=== PATIENT | male | born 1945 | race Caucasian/White ===

== ENCOUNTER 2021-11-17 22:44 | Inpatient (IN) ==
[2021-11-18 02:19] LABS: Activated Partial Thrombo Time 29.1 seconds (26.0-38.0)
[2021-11-18 02:34] LABS: Hematocrit 28 % (42-52); Hemoglobin 8.1 g/dL (14.0-18.0); Mean Corpuscular HGB Conc 29 g/dL (31-36); Mean Corpuscular Hemoglobin 19 pg (27-31); Mean Corpuscular Volume 66 fL (80-94); Mean Platelet Volume 8.4 fL (7.4-10.4); Platelet Count 201 10^3/uL (150-450); Red Blood Count 4.25 10^6 /uL (4.18-5.48); Red Cell Distribution Width 24 % (10-15); White Blood Count 17.9 10^3/uL (3.5-10.8)
[2021-11-18] MEDS ORDERED: Pantoprazole 80 mg in NS BAG 80 MG/250 ML BAG IV SCH (03:00)
[2021-11-18 03:06] LABS: Albumin 2.9 g/dL (3.2-5.2); Calcium 7.9 mg/dL (8.6-10.3); Magnesium 1.9 mg/dL (1.9-2.7); Total Bilirubin 1.8 mg/dL (0.2-1.0)
[2021-11-18 03:12] LABS: Albumin/Globulin Ratio 1.1 (1-3); C Reactive Protein 204.54 mg/L (<8.01); Globulin 2.6 g/dL (2-4); Total Protein 5.5 g/dL (6.4-8.9); eGFR CKD-EPI 102.2 (>60)
[2021-11-18] MEDS ORDERED: Lactated Ringers 1000 ml BAG 1,000 ML IV SCH ×2 (03:18→04:20)
[2021-11-18] MEDS ORDERED: Vancomycin 1,000 MG in NS 0.9% 250 ml 250 ML IVPB ONE (03:19)
[2021-11-18] MEDS: Cefepime 1 GM in Dextrose 1 GM/50 ML BAG IV SCH ×2 (04:00→16:38)
[2021-11-18] MEDS ORDERED: Vancomycin per Pharmacy 1 EA NOTE FOLLOW UP SCH (04:00)
[2021-11-18 04:07] LABS: TSH Ultra Thyroid Stim Horm 3.22 mcIU/mL (0.34-5.60)
[2021-11-18] MEDS: Pantoprazole VIAL 40 MG VIAL IV SCH ×2 (04:09→16:35)
[2021-11-18 04:13] LABS: Ferritin 35.8 ng/mL (24-336)
[2021-11-18] MEDS: metroNIDAZOLE IV 500 MG/100ML 500 MG/100 ML BAG IVPB SCH ×2 (05:04→12:16)
[2021-11-18 05:41] LABS: Urine Appearance Clear; Urine Bilirubin Negative (Negative); Urine Blood 2+ (Negative); Urine Color Yellow; Urine Glucose 1+(50 mg/dL) (Negative); Urine Ketones 1+ (Negative); Urine Nitrite Negative (Negative); Urine Protein 1+(30 mg/dL) (Negative); Urine Specific Gravity 1.025 (1.002-1.030); Urine Urobilinogen Negative (Negative)
[2021-11-18 06:30] LABS: Urine Bacteria Absent (Absent); Urine Red Blood Cell Trace(0-2/hpf) (Absent); Urine White Blood Cell Trace(0-5/hpf) (Absent)
[2021-11-18 08:40] LABS: Anisocytosis 2+; Hypochromasia 2+; Microcytosis 3+; Polychromasia 1+
[2021-11-18 08:41] LABS: ABS Lymphocytes 0.3 10^3/ul (1.0-4.8); ABS Monocytes 1.6 10^3/ul (0-0.8); Lymphocyte % 1.9 %
[2021-11-18] MEDS ORDERED: Vancomycin 1000 MG in NS 0.9% 250 ML IVPB SCH (12:00)
[2021-11-18] MEDS ORDERED: Piperacillin/Tazobac ADVAN 3.375 GM in NS 0.9% 100 ml BAG 100 ML IV ONE (17:13)
[2021-11-18] MEDS ORDERED: Zosyn per Pharmacy NOTE FOLLOW UP SCH (18:00)
[2021-11-18] MEDS ORDERED: Insulin GLARGINE 100 un/ml 10 ml VIAL SUBCUT SCH (21:00)
[2021-11-18] MEDS: ZOSYN 3.375 GM Q8H per EXTENDED INFUSION IV SCH (21:56)
[2021-11-19 05:24] LABS: Hematocrit 30 % (42-52); Hemoglobin 8.6 g/dL (14.0-18.0); Mean Corpuscular HGB Conc 29 g/dL (31-36); Mean Corpuscular Hemoglobin 19 pg (27-31); Mean Corpuscular Volume 67 fL (80-94); Mean Platelet Volume 8.6 fL (7.4-10.4); Platelet Count 221 10^3/uL (150-450); Red Cell Distribution Width 24 % (10-15); White Blood Count 16.9 10^3/uL (3.5-10.8)
[2021-11-19] MEDS: ZOSYN 3.375 GM Q8H per EXTENDED INFUSION IV SCH ×3 (05:24→22:05)
[2021-11-19] MEDS: Pantoprazole VIAL 40 MG VIAL IV SCH (05:24)
[2021-11-19 05:35] LABS: Anion Gap 7 mmol/L (2-11); Blood Urea Nitrogen 29 mg/dL (6-24); CO2 Carbon Dioxide 22 mmol/L (22-32); Calcium 7.9 mg/dL (8.6-10.3); Chloride 110 mmol/L (101-111); Cholesterol 114 mg/dL; Glucose 364 mg/dL (70-100); HDL Cholesterol 41.2 mg/dL; LDL Cholesterol 59 mg/dL; Magnesium 2.1 mg/dL (1.9-2.7); Potassium 4.2 mmol/L (3.5-5.0); Sodium 139 mmol/L (135-145); Triglycerides 68 mg/dL; eGFR CKD-EPI 93.7 (>60)
[2021-11-19 08:48] LABS: Folate > 20.00 ng/mL (5.90-24.80)
[2021-11-19 08:49] LABS: Vitamin B12 989 pg/mL (180-914)
[2021-11-19 10:21] LABS: Creatine Kinase 835 U/L (10-223)
[2021-11-19] MEDS ORDERED: NS 0.9% 1000 ml BAG 1,000 ML IV SCH (11:15)
[2021-11-19] MEDS ORDERED: Vancomycin Trough Check NOTE FOLLOW UP ONE (11:30)
[2021-11-19] MEDS ORDERED: Piperacillin/Tazobac 3.375 GM BAG ONE (14:34)
[2021-11-19] MEDS ORDERED: Vancomycin per Pharmacy 1 EA NOTE FOLLOW UP SCH (16:00)
[2021-11-19] MEDS ORDERED: Bupivacaine 0.5% 50 ML MDV VIAL ONE (16:01)
[2021-11-19] MEDS ORDERED: Lidocaine 2% PF 10 ML AMP ONE (16:02)
[2021-11-19] MEDS ORDERED: Vancomycin 1,000 MG in NS 0.9% 250 ml 250 ML IVPB ONE (16:30)
[2021-11-19] MEDS ORDERED: fentaNYL 250 mcg/5 ml 50 MCG/ML 5 ml VIAL (250 MCG) ONE (16:38)
[2021-11-19] MEDS ORDERED: Rocuronium 50 mg VIAL 10 mg/ml 5 ml VIAL (50 mg) ONE (16:38)
[2021-11-19] MEDS ORDERED: Phenylephrine IV 10 MG/ML 1 ml VIAL ONE (16:39)
[2021-11-19] MEDS ORDERED: Propofol 10 MG/ML 20 ML BTL ONE (16:39)
[2021-11-19] MEDS ORDERED: Ondansetron 4 mg VIAL 2 MG/ML 2 ml VIAL ONE (16:39)
[2021-11-19] MEDS ORDERED: Sugammadex 500 MG/5 ML 5 ml VIAL IV PUSH ONE (17:39)
[2021-11-19] MEDS ORDERED: fentaNYL 100 mcg/2 ml 50 MCG/ML VIAL IV PRN (18:07)
[2021-11-19] MEDS ORDERED: Ondansetron 4 mg VIAL 2 MG/ML 2 ml VIAL IV PRN (18:07)
[2021-11-19] MEDS ORDERED: Naloxone 0.4 mg VIAL 0.4 mg/ml 1 ml VIAL IV PRN (18:07)
[2021-11-19] MEDS ORDERED: Acetaminophen IV 1 GM/100ML 100 ML IV PRN (18:07)
[2021-11-19] MEDS: Insulin GLARGINE 100 un/ml 10 ml VIAL SUBCUT SCH (22:05)
[2021-11-20] MEDS: ZOSYN 3.375 GM Q8H per EXTENDED INFUSION IV SCH ×3 (05:14→21:47)
[2021-11-20] MEDS: HYDROmorphone 0.5 MG/0.5 ML SYRINGE IV SLOW PU PRN (05:14)
[2021-11-20 06:40] LABS: Hematocrit 26 % (42-52); Hemoglobin 7.4 g/dL (14.0-18.0); Mean Corpuscular HGB Conc 29 g/dL (31-36); Mean Corpuscular Hemoglobin 19 pg (27-31); Mean Corpuscular Volume 66 fL (80-94); Mean Platelet Volume 7.5 fL (7.4-10.4); Platelet Count 220 10^3/uL (150-450); Red Blood Count 3.94 10^6 /uL (4.18-5.48); Red Cell Distribution Width 24 % (10-15); White Blood Count 13.7 10^3/uL (3.5-10.8)
[2021-11-20 06:53] LABS: C Reactive Protein 154.59 mg/L (<8.01); Calcium 7.6 mg/dL (8.6-10.3); Potassium 3.9 mmol/L (3.5-5.0); eGFR CKD-EPI 103.9 (>60)
[2021-11-20 07:42] LABS: ABS Eosinophils 0.2 10^3/ul (0-0.6); ABS Lymphocytes 0.4 10^3/ul (1.0-4.8); ABS Monocytes 2.1 10^3/ul (0-0.8); ABS Neutrophils 11.1 10^3/ul (1.5-7.7); Eosinophil % 1.4 %; Lymphocyte % 2.6 %
[2021-11-20] MEDS: Vancomycin 1000 MG in NS 0.9% 250 ML IVPB SCH ×2 (08:38→20:28)
[2021-11-20] MEDS: Senna TAB 8.6 mg TAB PO SCH (21:48)
[2021-11-20] MEDS: Insulin GLARGINE 100 un/ml 10 ml VIAL SUBCUT SCH (21:49)
[2021-11-21] MEDS: ZOSYN 3.375 GM Q8H per EXTENDED INFUSION IV SCH ×3 (05:08→21:11)
[2021-11-21 05:47] LABS: Hematocrit 28 % (42-52); Hemoglobin 8.1 g/dL (14.0-18.0); Mean Corpuscular HGB Conc 29 g/dL (31-36); Mean Corpuscular Hemoglobin 19 pg (27-31); Mean Corpuscular Volume 66 fL (80-94); Mean Platelet Volume 8.3 fL (7.4-10.4); Platelet Count 222 10^3/uL (150-450); Red Blood Count 4.28 10^6 /uL (4.18-5.48); Red Cell Distribution Width 24 % (10-15); White Blood Count 9.3 10^3/uL (3.5-10.8)
[2021-11-21 05:55] LABS: C Reactive Protein 119.58 mg/L (<8.01); Calcium 7.7 mg/dL (8.6-10.3); Magnesium 1.9 mg/dL (1.9-2.7); Potassium 3.8 mmol/L (3.5-5.0); Vancomycin Trough 9.5 mcg/mL; eGFR CKD-EPI 106.4 (>60)
[2021-11-21] MEDS ORDERED: Vancomycin Trough Check NOTE FOLLOW UP ONE (06:00)
[2021-11-21 07:16] LABS: ABS Eosinophils 0.2 10^3/ul (0-0.6); ABS Lymphocytes 1.6 10^3/ul (1.0-4.8); ABS Monocytes 0.7 10^3/ul (0-0.8); ABS Neutrophils 6.7 10^3/ul (1.5-7.7); Eosinophil % 2.6 %; Lymphocyte % 17.3 %
[2021-11-21] MEDS ORDERED: Magnesium Sulfate 2 gm BAG 2 GM/50 ML BAG IVPB ONE (07:20)
[2021-11-21] MEDS ORDERED: Insulin GLARGINE 100 un/ml 10 ml VIAL SUBCUT SCH ×2 (09:00)
[2021-11-21] MEDS: Polyethylene Glycol 3350 17 GM PACKET PO SCH (09:35)
[2021-11-21] MEDS: Vancomycin 1000 MG in NS 0.9% 250 ML IVPB SCH (09:35)
[2021-11-21] MEDS: Iron Sucrose 200 MG in NS 0.9% 100 ml BAG 100 ML IVPB SCH (16:14)
[2021-11-21] MEDS: Vancomycin 750 MG in NS 0.9% 250 ML IVPB SCH (17:42)
[2021-11-21] MEDS: Senna TAB 8.6 mg TAB PO SCH (21:11)
[2021-11-22] MEDS: Vancomycin 750 MG in NS 0.9% 250 ML IVPB SCH ×3 (01:37→18:00)
[2021-11-22] MEDS: ZOSYN 3.375 GM Q8H per EXTENDED INFUSION IV SCH ×3 (05:28→21:29)
[2021-11-22 06:50] LABS: Hematocrit 27 % (42-52); Hemoglobin 8.2 g/dL (14.0-18.0); Mean Corpuscular HGB Conc 30 g/dL (31-36); Mean Corpuscular Hemoglobin 20 pg (27-31); Mean Corpuscular Volume 66 fL (80-94); Mean Platelet Volume 8.6 fL (7.4-10.4); Platelet Count 251 10^3/uL (150-450); Red Blood Count 4.14 10^6 /uL (4.18-5.48); Red Cell Distribution Width 25 % (10-15); White Blood Count 9.8 10^3/uL (3.5-10.8)
[2021-11-22 07:12] LABS: C Reactive Protein 99.56 mg/L (<8.01); Potassium 3.9 mmol/L (3.5-5.0); eGFR CKD-EPI 101.7 (>60)
[2021-11-22 07:53] LABS: ABS Eosinophils 0.2 10^3/ul (0-0.6); ABS Lymphocytes 1.8 10^3/ul (1.0-4.8); ABS Monocytes 0.9 10^3/ul (0-0.8); ABS Neutrophils 6.9 10^3/ul (1.5-7.7); Eosinophil % 2.4 %; Lymphocyte % 18.1 %
[2021-11-22] MEDS ORDERED: Insulin GLARGINE 100 un/ml 10 ml VIAL SUBCUT SCH ×2 (09:00→18:00)
[2021-11-22] MEDS: Polyethylene Glycol 3350 17 GM PACKET PO SCH (09:08)
[2021-11-22] MEDS: Dextrose 50% Syringe 50 ml 25 GM/50 ML SYRINGE IV PUSH PRN (09:22)
[2021-11-22] MEDS: Iron Sucrose 200 MG in NS 0.9% 100 ml BAG 100 ML IVPB SCH (09:38)
[2021-11-22 09:55] LABS: Calcium 7.5 mg/dL (8.6-10.3)
[2021-11-22 21:19] LABS: Glucose Confirmatory 414 mg/dL (70-100)
[2021-11-22] MEDS: Senna TAB 8.6 mg TAB PO SCH (21:29)
[2021-11-22] MEDS: Insulin GLARGINE 100 un/ml 10 ml VIAL SUBCUT SCH (21:29)
[2021-11-23] MEDS: Vancomycin 750 MG in NS 0.9% 250 ML IVPB SCH ×2 (01:56→11:17)
[2021-11-23 04:11] LABS: ABS Basophils 0.1 10^3/ul (0-0.2); ABS Eosinophils 0.2 10^3/ul (0-0.6); ABS Lymphocytes 0.6 10^3/ul (1.0-4.8); ABS Monocytes 0.7 10^3/ul (0-0.8); ABS Neutrophils 7.6 10^3/ul (1.5-7.7); Eosinophil % 2.7 %; Hematocrit 29 % (42-52); Hemoglobin 8.4 g/dL (14.0-18.0); Lymphocyte % 6.1 %; Mean Corpuscular HGB Conc 29 g/dL (31-36); Mean Corpuscular Hemoglobin 20 pg (27-31); Mean Corpuscular Volume 67 fL (80-94); Mean Platelet Volume 8.6 fL (7.4-10.4); Nucleated Red Blood Cells % 0.1; Platelet Count 283 10^3/uL (150-450); Red Blood Count 4.32 10^6 /uL (4.18-5.48); Red Cell Distribution Width 25 % (10-15); White Blood Count 9.2 10^3/uL (3.5-10.8)
[2021-11-23 04:21] LABS: C Reactive Protein 113.13 mg/L (<8.01); Calcium 7.7 mg/dL (8.6-10.3); Potassium 4.1 mmol/L (3.5-5.0); eGFR CKD-EPI 103.3 (>60)
[2021-11-23] MEDS: ZOSYN 3.375 GM Q8H per EXTENDED INFUSION IV SCH ×3 (05:44→22:53)
[2021-11-23] MEDS: Polyethylene Glycol 3350 17 GM PACKET PO SCH (08:16)
[2021-11-23] MEDS: Iron Sucrose 200 MG in NS 0.9% 100 ml BAG 100 ML IVPB SCH (08:16)
[2021-11-23] MEDS ORDERED: Insulin GLARGINE 100 un/ml 10 ml VIAL SUBCUT SCH ×2 (09:00)
[2021-11-23] MEDS ORDERED: Vancomycin Trough Check NOTE FOLLOW UP ONE (09:30)
[2021-11-23] MEDS: HYDROmorphone 0.5 MG/0.5 ML SYRINGE IV SLOW PU PRN ×3 (09:35→20:25)
[2021-11-23] MEDS ORDERED: Vancomycin 1,250 MG in NS 0.9% 250 ml 250 ML IVPB SCH (11:30)
[2021-11-23] MEDS: Senna TAB 8.6 mg TAB PO SCH (20:05)
[2021-11-23] MEDS: Insulin GLARGINE 100 un/ml 10 ml VIAL SUBCUT SCH (20:06)
[2021-11-24] MEDS: ZOSYN 3.375 GM Q8H per EXTENDED INFUSION IV SCH ×3 (05:35→23:23)
[2021-11-24] MEDS: Polyethylene Glycol 3350 17 GM PACKET PO SCH (09:21)
[2021-11-24] MEDS: Insulin GLARGINE 100 un/ml 10 ml VIAL SUBCUT SCH (09:30)
[2021-11-24] MEDS ORDERED: Magnesium CITRATE LIQ 300 ML BTL PO ONE (11:14)
[2021-11-24] MEDS ORDERED: LORazepam 2 mg VIAL 1 ml IV PUSH PRN (11:49)
[2021-11-24] MEDS ORDERED: Lorazepam PYXIS KEY PRN (11:50)
[2021-11-24] MEDS: Iron Sucrose 200 MG in NS 0.9% 100 ml BAG 100 ML IVPB SCH (12:53)
[2021-11-24] MEDS: Dextrose 50% Syringe 50 ml 25 GM/50 ML SYRINGE IV PUSH PRN (17:12)
[2021-11-24] MEDS: Senna TAB 8.6 mg TAB PO SCH (22:11)
[2021-11-24] MEDS: HYDROmorphone 0.5 MG/0.5 ML SYRINGE IV SLOW PU PRN (23:17)
[2021-11-25] MEDS: ZOSYN 3.375 GM Q8H per EXTENDED INFUSION IV SCH ×3 (05:08→21:50)
[2021-11-25 07:10] LABS: Calcium 7.5 mg/dL (8.6-10.3); Magnesium 1.9 mg/dL (1.9-2.7); Potassium 3.5 mmol/L (3.5-5.0); eGFR CKD-EPI 107.7 (>60)
[2021-11-25] MEDS ORDERED: Magnesium Sulfate 2 gm BAG 2 GM/50 ML BAG IVPB ONE (07:14)
[2021-11-25 07:16] LABS: Hematocrit 25 % (42-52); Hemoglobin 7.7 g/dL (14.0-18.0); Mean Corpuscular HGB Conc 30 g/dL (31-36); Mean Corpuscular Hemoglobin 20 pg (27-31); Mean Corpuscular Volume 67 fL (80-94); Mean Platelet Volume 8.6 fL (7.4-10.4); Platelet Count 272 10^3/uL (150-450); Red Blood Count 3.78 10^6 /uL (4.18-5.48); Red Cell Distribution Width 26 % (10-15); White Blood Count 7.4 10^3/uL (3.5-10.8)
[2021-11-25] MEDS: Insulin GLARGINE 100 un/ml 10 ml VIAL SUBCUT SCH (08:48)
[2021-11-25] MEDS: Iron Sucrose 200 MG in NS 0.9% 100 ml BAG 100 ML IVPB SCH (08:49)
[2021-11-25] MEDS: Polyethylene Glycol 3350 17 GM PACKET PO SCH ×2 (08:49→08:53)
[2021-11-25 09:11] LABS: C Reactive Protein 90.48 mg/L (<8.01)
[2021-11-25] MEDS ORDERED: Lorazepam PYXIS KEY PRN (09:40)
[2021-11-25] MEDS ORDERED: LORazepam 2 mg VIAL 1 ml IV PUSH ONE ×2 (09:52→15:15)
[2021-11-25] MEDS ORDERED: Vancomycin Trough Check NOTE FOLLOW UP ONE (11:00)
[2021-11-25] MEDS ORDERED: Magnesium Sulfate 2 GM IV (Premix) IVPB ONE (12:00)
[2021-11-25] MEDS: HYDROmorphone 0.5 MG/0.5 ML SYRINGE IV SLOW PU PRN (15:28)
[2021-11-25] MEDS: Dextrose 50% Syringe 50 ml 25 GM/50 ML SYRINGE IV PUSH PRN ×2 (17:57→21:21)
[2021-11-25] MEDS: Senna TAB 8.6 mg TAB PO SCH (21:59)
[2021-11-26] MEDS: ZOSYN 3.375 GM Q8H per EXTENDED INFUSION IV SCH ×3 (05:32→21:10)
[2021-11-26 05:40] LABS: Hematocrit 28 % (42-52); Hemoglobin 8.2 g/dL (14.0-18.0); Mean Corpuscular HGB Conc 30 g/dL (31-36); Mean Corpuscular Hemoglobin 20 pg (27-31); Mean Corpuscular Volume 68 fL (80-94); Mean Platelet Volume 8.6 fL (7.4-10.4); Platelet Count 295 10^3/uL (150-450); Red Blood Count 4.12 10^6 /uL (4.18-5.48); Red Cell Distribution Width 25 % (10-15); White Blood Count 6.8 10^3/uL (3.5-10.8)
[2021-11-26 05:47] LABS: Calcium 7.3 mg/dL (8.6-10.3); Potassium 3.1 mmol/L (3.5-5.0)
[2021-11-26] MEDS: Dextrose 50% Syringe 50 ml 25 GM/50 ML SYRINGE IV PUSH PRN (05:58)
[2021-11-26] MEDS: Polyethylene Glycol 3350 17 GM PACKET PO SCH (08:23)
[2021-11-26] MEDS ORDERED: Potassium Chlor 20 meq TAB.ER PO SCH (09:00)
[2021-11-26] MEDS ORDERED: NS 0.9% w/ 40 Meq KCL 1000 ML 1,000 ML IV SCH (09:00)
[2021-11-26] MEDS ORDERED: fentaNYL 100 mcg/2 ml 50 MCG/ML VIAL ONE ×3 (10:04→15:30)
[2021-11-26] MEDS ORDERED: Midazolam 2 mg/2 ml VIAL 1 mg/ml 2 ml VIAL (2 mg) ONE (10:04)
[2021-11-26] MEDS ORDERED: Lidocaine 2% PF 10 ML AMP ONE (12:50)
[2021-11-26] MEDS ORDERED: Bupivacaine 0.25% SDV PF 10 ML VIAL INJ ONE (12:51)
[2021-11-26] MEDS ORDERED: Ondansetron 4 mg VIAL 2 MG/ML 2 ml VIAL ONE (12:57)
[2021-11-26] MEDS ORDERED: Dexamethasone IV 4 MG/ML VIAL 1 ml VIAL ONE (12:57)
[2021-11-26] MEDS ORDERED: Propofol 10 MG/ML 20 ML BTL ONE (12:57)
[2021-11-26] MEDS ORDERED: Naloxone 0.4 mg VIAL 0.4 mg/ml 1 ml VIAL IV PRN (15:18)
[2021-11-26] MEDS ORDERED: fentaNYL 100 mcg/2 ml 50 MCG/ML VIAL IV PRN (15:18)
[2021-11-26] MEDS ORDERED: Insulin GLARGINE 100 un/ml 10 ml VIAL SUBCUT SCH (21:00)
[2021-11-26] MEDS: HYDROmorphone 0.5 MG/0.5 ML SYRINGE IV SLOW PU PRN (21:10)
[2021-11-26] MEDS: Potassium Chlor 20 meq TAB.ER PO SCH (21:11)
[2021-11-26] MEDS: Senna TAB 8.6 mg TAB PO SCH (21:12)
[2021-11-27] MEDS: ZOSYN 3.375 GM Q8H per EXTENDED INFUSION IV SCH ×2 (06:07→14:30)
[2021-11-27 07:00] LABS: Hematocrit 26 % (42-52); Hemoglobin 7.7 g/dL (14.0-18.0); Mean Corpuscular HGB Conc 30 g/dL (31-36); Mean Corpuscular Hemoglobin 21 pg (27-31); Mean Corpuscular Volume 69 fL (80-94); Mean Platelet Volume 8.3 fL (7.4-10.4); Platelet Count 257 10^3/uL (150-450); Red Blood Count 3.68 10^6 /uL (4.18-5.48); Red Cell Distribution Width 26 % (10-15); White Blood Count 5.4 10^3/uL (3.5-10.8)
[2021-11-27 07:14] LABS: Calcium 7.1 mg/dL (8.6-10.3); Magnesium 1.9 mg/dL (1.9-2.7); Potassium 4.1 mmol/L (3.5-5.0); eGFR CKD-EPI 107.7 (>60)
[2021-11-27] MEDS: Polyethylene Glycol 3350 17 GM PACKET PO SCH (08:08)
[2021-11-27] MEDS: Potassium Chlor 20 meq TAB.ER PO SCH ×2 (08:09→20:10)
[2021-11-27] MEDS ORDERED: Insulin GLARGINE 100 un/ml 10 ml VIAL SUBCUT SCH (09:00)
[2021-11-27] MEDS: Senna TAB 8.6 mg TAB PO SCH (20:10)
[2021-11-27] MEDS: Insulin GLARGINE 100 un/ml 10 ml VIAL SUBCUT SCH (20:11)
[2021-11-27] MEDS: cefTRIAXone 1 gm/50 mL D5W 1 GM/50 ML BAG IV SCH (20:23)
[2021-11-28 05:04] LABS: Hematocrit 27 % (42-52); Hemoglobin 8.1 g/dL (14.0-18.0); Mean Corpuscular HGB Conc 30 g/dL (31-36); Mean Corpuscular Hemoglobin 21 pg (27-31); Mean Corpuscular Volume 69 fL (80-94); Mean Platelet Volume 8.3 fL (7.4-10.4); Platelet Count 266 10^3/uL (150-450); Red Blood Count 3.84 10^6 /uL (4.18-5.48); Red Cell Distribution Width 26 % (10-15); White Blood Count 6.7 10^3/uL (3.5-10.8)
[2021-11-28 05:48] LABS: Calcium 7.3 mg/dL (8.6-10.3); Magnesium 1.7 mg/dL (1.9-2.7); Potassium 4.1 mmol/L (3.5-5.0)
[2021-11-28 05:54] LABS: eGFR CKD-EPI 112.9 (>60)
[2021-11-28] MEDS: Dextrose 50% Syringe 50 ml 25 GM/50 ML SYRINGE IV PUSH PRN (06:05)
[2021-11-28] MEDS ORDERED: Magnesium Sulfate 2 gm BAG 2 GM/50 ML BAG IVPB ONE (07:30)
[2021-11-28] MEDS ORDERED: Magnesium Sulfate 1 GM IV 1 GM/100 ML BAG IV ONE (08:30)
[2021-11-28] MEDS: Potassium Chlor 20 meq TAB.ER PO SCH ×2 (08:55→19:56)
[2021-11-28] MEDS: Polyethylene Glycol 3350 17 GM PACKET PO SCH (08:59)
[2021-11-28] MEDS: cefTRIAXone 1 gm/50 mL D5W 1 GM/50 ML BAG IV SCH (19:57)
[2021-11-28] MEDS: Senna TAB 8.6 mg TAB PO SCH (19:58)
[2021-11-28] MEDS: Insulin GLARGINE 100 un/ml 10 ml VIAL SUBCUT SCH (20:03)
[2021-11-29 05:34] LABS: Hematocrit 28 % (42-52); Hemoglobin 8.4 g/dL (14.0-18.0); Mean Corpuscular HGB Conc 30 g/dL (31-36); Mean Corpuscular Hemoglobin 21 pg (27-31); Mean Corpuscular Volume 69 fL (80-94); Mean Platelet Volume 8.4 fL (7.4-10.4); Platelet Count 275 10^3/uL (150-450); Red Blood Count 4.01 10^6 /uL (4.18-5.48); Red Cell Distribution Width 26 % (10-15); White Blood Count 5.6 10^3/uL (3.5-10.8)
[2021-11-29 06:23] LABS: Anion Gap 4 mmol/L (2-11); Blood Urea Nitrogen 8 mg/dL (6-24); CO2 Carbon Dioxide 29 mmol/L (22-32); Calcium 7.6 mg/dL (8.6-10.3); Chloride 104 mmol/L (101-111); Glucose 177 mg/dL (70-100); Magnesium 1.8 mg/dL (1.9-2.7); Potassium 4.3 mmol/L (3.5-5.0); Sodium 137 mmol/L (135-145); eGFR CKD-EPI 112.1 (>60)
[2021-11-29] MEDS ORDERED: Magnesium Sulfate 2 gm BAG 2 GM/50 ML BAG IV ONE (08:00)
[2021-11-29] MEDS: Insulin GLARGINE 100 un/ml 10 ml VIAL SUBCUT SCH ×2 (08:19→20:09)
[2021-11-29] MEDS: Polyethylene Glycol 3350 17 GM PACKET PO SCH (08:20)
[2021-11-29] MEDS: Potassium Chlor 20 meq TAB.ER PO SCH (08:32)
[2021-11-29] MEDS ORDERED: Magnesium Sulfate 1 GM IV 1 GM/100 ML BAG IV ONE (09:00)
[2021-11-29] MEDS: Potassium Chloride LIQUID 20 MEQ/15 ML LIQUID PO SCH ×2 (10:15→20:09)
[2021-11-29 15:29] LABS: Rapid COVID-19 Molecular Detected (Undetected)
[2021-11-29] MEDS ORDERED: Enoxaparin 30 MG/0.3 ML SYR SUBCUT SCH (16:00)
[2021-11-29] MEDS ORDERED: Enoxaparin 40 MG/0.4 ML SYR SUBCUT SCH (17:00)
[2021-11-29 17:29] LABS: ALT 32 U/L (7-52); AST 34 U/L (13-39); Albumin 2.3 g/dL (3.2-5.2); Alkaline Phosphatase 59 U/L (35-149); Globulin 2.4 g/dL (2-4); Total Protein 4.7 g/dL (6.4-8.9)
[2021-11-29] MEDS ORDERED: Remdesivir 100 mg Vial 200 MG in NS 0.9% 250 ml 210 ML IV ONE (17:41)
[2021-11-29] MEDS ORDERED: Remdesivir 100 mg Vial 100 MG in NS 0.9% 250 ml 230 ML IV SCH (17:45)
[2021-11-29 18:20] LABS: INR 1.33 (0.86-1.15)
[2021-11-29 19:01] LABS: Albumin 2.4 g/dL (3.2-5.2); Albumin/Globulin Ratio 0.9 (1-3); Calcium 7.5 mg/dL (8.6-10.3); Globulin 2.6 g/dL (2-4); Potassium 4.5 mmol/L (3.5-5.0); Total Bilirubin 0.2 mg/dL (0.2-1.0); eGFR CKD-EPI 106.4 (>60)
[2021-11-29] MEDS: Senna TAB 8.6 mg TAB PO SCH (20:09)
[2021-11-29] MEDS: cefTRIAXone 1 gm/50 mL D5W 1 GM/50 ML BAG IV SCH (20:12)
[2021-11-30 06:17] LABS: ABS Lymphocytes 0.3 10^3/ul (1.0-4.8); ABS Monocytes 0.8 10^3/ul (0-0.8); ABS Neutrophils 4.2 10^3/ul (1.5-7.7); Eosinophil % 0.9 %; Hematocrit 27 % (42-52); Hemoglobin 8.3 g/dL (14.0-18.0); Lymphocyte % 5.6 %; Mean Corpuscular HGB Conc 31 g/dL (31-36); Mean Corpuscular Hemoglobin 21 pg (27-31); Mean Corpuscular Volume 69 fL (80-94); Mean Platelet Volume 8.5 fL (7.4-10.4); Nucleated Red Blood Cells % 0.2; Platelet Count 271 10^3/uL (150-450); Red Blood Count 3.95 10^6 /uL (4.18-5.48); Red Cell Distribution Width 28 % (10-15); White Blood Count 5.4 10^3/uL (3.5-10.8)
[2021-11-30 06:31] LABS: Albumin 2.2 g/dL (3.2-5.2); Albumin/Globulin Ratio 0.8 (1-3); Calcium 7.6 mg/dL (8.6-10.3); Globulin 2.7 g/dL (2-4); Magnesium 1.8 mg/dL (1.9-2.7); Potassium 4.1 mmol/L (3.5-5.0); Total Bilirubin 0.2 mg/dL (0.2-1.0); Total Protein 4.9 g/dL (6.4-8.9); eGFR CKD-EPI 109.1 (>60)
[2021-11-30] MEDS: Dextrose 50% Syringe 50 ml 25 GM/50 ML SYRINGE IV PUSH PRN (06:39)
[2021-11-30 06:40] LABS: INR 1.28 (0.86-1.15)
[2021-11-30] MEDS ORDERED: Magnesium Sulfate 2 gm BAG 2 GM/50 ML BAG IVPB ONE (07:11)
[2021-11-30 08:26] VITALS: BP 135/56
[2021-11-30] MEDS: Polyethylene Glycol 3350 17 GM PACKET PO SCH (08:26)
[2021-11-30] MEDS: Potassium Chloride LIQUID 20 MEQ/15 ML LIQUID PO SCH (08:43)
[2021-11-30] MEDS ORDERED: NS 0.9% IV SCH (09:00)
[2021-11-30] MEDS ORDERED: REMDESIVIR IV SCH (09:00)
[2021-11-30] MEDS: Insulin GLARGINE 100 un/ml 10 ml VIAL SUBCUT SCH (09:10)
[2021-11-30] MEDS ORDERED: Remdesivir 100 mg Q24H MAINTENANCE DOSING IV SCH (21:00)
== END 2021-11-30 11:42 | disposition swing bed (61) | DRG 853 ==
LOC: MEDTELE 11-18 01:02 → SUATTDRO 11-18 01:02
PROVIDERS: ADMIT Family Medicine; ATTEND Student in an Organized Health Care Education/Training Program

== ENCOUNTER 2021-11-30 11:59 | Inpatient (IN) ==
[2021-11-30] MEDS ORDERED: Dextrose 50% Syringe 50 ml 25 GM/50 ML SYRINGE IV PUSH PRN (12:59)
[2021-11-30] MEDS ORDERED: HYDROmorphone 0.5 MG/0.5 ML SYRINGE IV SLOW PU PRN (13:06)
[2021-11-30] MEDS: Enoxaparin 40 MG/0.4 ML SYR SUBCUT SCH (17:33)
[2021-11-30] MEDS: cefTRIAXone 1 gm/50 mL D5W 1 GM/50 ML BAG IV SCH (20:00)
[2021-11-30] MEDS: Remdesivir 100 mg Vial 100 MG in NS 0.9% 250 ml 230 ML IV SCH (20:05)
[2021-11-30] MEDS: Senna TAB 8.6 mg TAB PO SCH (20:46)
[2021-12-01] MEDS: Insulin GLARGINE 100 un/ml 10 ml VIAL SUBCUT SCH (08:52)
[2021-12-01] MEDS: Polyethylene Glycol 3350 17 GM PACKET PO SCH (08:52)
[2021-12-01] MEDS: Enoxaparin 40 MG/0.4 ML SYR SUBCUT SCH (17:47)
[2021-12-01] MEDS: cefTRIAXone 1 gm/50 mL D5W 1 GM/50 ML BAG IV SCH (20:14)
[2021-12-01] MEDS: Remdesivir 100 mg Vial 100 MG in NS 0.9% 250 ml 230 ML IV SCH (20:14)
[2021-12-01] MEDS: Senna TAB 8.6 mg TAB PO SCH (20:32)
[2021-12-02] MEDS: Polyethylene Glycol 3350 17 GM PACKET PO SCH (09:03)
[2021-12-02] MEDS: Insulin GLARGINE 100 un/ml 10 ml VIAL SUBCUT SCH (12:27)
[2021-12-02] MEDS: Enoxaparin 40 MG/0.4 ML SYR SUBCUT SCH (16:59)
[2021-12-02] MEDS: Senna TAB 8.6 mg TAB PO SCH (20:48)
[2021-12-02] MEDS: cefTRIAXone 1 gm/50 mL D5W 1 GM/50 ML BAG IV SCH (22:51)
[2021-12-03] MEDS: Polyethylene Glycol 3350 17 GM PACKET PO SCH (09:56)
[2021-12-03] MEDS: Insulin GLARGINE 100 un/ml 10 ml VIAL SUBCUT SCH (09:57)
[2021-12-03] MEDS: Senna TAB 8.6 mg TAB PO SCH ×2 (23:19→23:42)
[2021-12-03] MEDS: cefTRIAXone 1 gm/50 mL D5W 1 GM/50 ML BAG IV SCH (23:20)
[2021-12-03] MEDS: Enoxaparin 40 MG/0.4 ML SYR SUBCUT SCH (23:20)
[2021-12-04] MEDS: Polyethylene Glycol 3350 17 GM PACKET PO SCH (08:50)
[2021-12-04] MEDS: Insulin GLARGINE 100 un/ml 10 ml VIAL SUBCUT SCH (08:57)
[2021-12-04] MEDS: cefTRIAXone 1 gm/50 mL D5W 1 GM/50 ML BAG IV SCH (22:42)
[2021-12-04] MEDS: Enoxaparin 40 MG/0.4 ML SYR SUBCUT SCH (22:42)
[2021-12-04] MEDS: Senna TAB 8.6 mg TAB PO SCH (22:43)
[2021-12-05] MEDS: Polyethylene Glycol 3350 17 GM PACKET PO SCH (08:02)
[2021-12-05] MEDS: Insulin GLARGINE 100 un/ml 10 ml VIAL SUBCUT SCH (08:02)
[2021-12-05] MEDS: cefTRIAXone 1 gm/50 mL D5W 1 GM/50 ML BAG IV SCH (20:59)
[2021-12-05] MEDS: Enoxaparin 40 MG/0.4 ML SYR SUBCUT SCH (20:59)
[2021-12-05] MEDS: Senna TAB 8.6 mg TAB PO SCH (21:20)
[2021-12-06] MEDS: Insulin GLARGINE 100 un/ml 10 ml VIAL SUBCUT SCH (09:14)
[2021-12-06] MEDS: Polyethylene Glycol 3350 17 GM PACKET PO SCH (09:15)
[2021-12-06] MEDS: Enoxaparin 40 MG/0.4 ML SYR SUBCUT SCH (20:04)
[2021-12-06] MEDS: cefTRIAXone 1 gm/50 mL D5W 1 GM/50 ML BAG IV SCH (20:04)
[2021-12-06] MEDS: Senna TAB 8.6 mg TAB PO SCH (20:05)
[2021-12-07 06:58] LABS: Albumin 2.2 g/dL (3.2-5.2); Albumin/Globulin Ratio 0.8 (1-3); C Reactive Protein 46.44 mg/L (<8.01); Globulin 2.7 g/dL (2-4); Potassium 3.9 mmol/L (3.5-5.0); Total Bilirubin 0.3 mg/dL (0.2-1.0); Total Protein 4.9 g/dL (6.4-8.9); eGFR CKD-EPI 109.1 (>60)
[2021-12-07] MEDS: Polyethylene Glycol 3350 17 GM PACKET PO SCH ×2 (09:01→09:02)
[2021-12-07] MEDS: Insulin GLARGINE 100 un/ml 10 ml VIAL SUBCUT SCH (09:02)
[2021-12-07] MEDS: cefTRIAXone 1 gm/50 mL D5W 1 GM/50 ML BAG IV SCH (20:12)
[2021-12-07] MEDS: Enoxaparin 40 MG/0.4 ML SYR SUBCUT SCH (20:14)
[2021-12-07] MEDS: Senna TAB 8.6 mg TAB PO SCH (20:15)
[2021-12-08] MEDS: Insulin GLARGINE 100 un/ml 10 ml VIAL SUBCUT SCH (08:27)
[2021-12-08] MEDS: Polyethylene Glycol 3350 17 GM PACKET PO SCH (08:39)
[2021-12-08] MEDS: Senna TAB 8.6 mg TAB PO SCH (21:01)
[2021-12-08] MEDS: Enoxaparin 40 MG/0.4 ML SYR SUBCUT SCH (21:21)
[2021-12-08] MEDS: cefTRIAXone 1 gm/50 mL D5W 1 GM/50 ML BAG IV SCH (21:23)
[2021-12-09] MEDS: Insulin GLARGINE 100 un/ml 10 ml VIAL SUBCUT SCH (09:43)
[2021-12-09] MEDS: Polyethylene Glycol 3350 17 GM PACKET PO SCH (11:37)
[2021-12-09] MEDS: Enoxaparin 40 MG/0.4 ML SYR SUBCUT SCH (20:31)
[2021-12-09] MEDS: cefTRIAXone 1 gm/50 mL D5W 1 GM/50 ML BAG IV SCH (20:31)
[2021-12-09] MEDS: Senna TAB 8.6 mg TAB PO SCH (20:32)
[2021-12-10] MEDS: Insulin GLARGINE 100 un/ml 10 ml VIAL SUBCUT SCH (08:55)
[2021-12-10] MEDS: Polyethylene Glycol 3350 17 GM PACKET PO SCH (08:56)
[2021-12-10] MEDS: cefTRIAXone 1 gm/50 mL D5W 1 GM/50 ML BAG IV SCH (20:00)
[2021-12-10] MEDS: Enoxaparin 40 MG/0.4 ML SYR SUBCUT SCH (20:01)
[2021-12-10] MEDS: Senna TAB 8.6 mg TAB PO SCH (20:02)
[2021-12-11] MEDS: Polyethylene Glycol 3350 17 GM PACKET PO SCH (07:54)
[2021-12-11] MEDS ORDERED: Heparin 2 UNITS/ML IVPREMIX 3,000 UNIT/1,500 ML BAG IV ONE (08:27)
[2021-12-11] MEDS ORDERED: Lidocaine 1% MPF 5 ML VIAL ONE (08:27)
[2021-12-11] MEDS ORDERED: Iohexol 300 (CONTRAST) 10 ML SDV ONE ×3 (08:27→10:04)
[2021-12-11] MEDS ORDERED: Heparin 1,000 UNIT/ML 10 ml (10,000 UNITS) CATHLAB/DIALYSIS ONE (08:47)
[2021-12-11] MEDS ORDERED: fentaNYL 100 mcg/2 ml 50 MCG/ML VIAL ONE (08:47)
[2021-12-11] MEDS ORDERED: Midazolam 5 mg/5 ml VIAL 1 mg/ml 5 ml VIAL (5 mg) ONE (08:47)
[2021-12-11] MEDS: Insulin GLARGINE 100 un/ml 10 ml VIAL SUBCUT SCH (12:28)
[2021-12-11] MEDS: Enoxaparin 40 MG/0.4 ML SYR SUBCUT SCH (20:16)
[2021-12-11] MEDS: cefTRIAXone 1 gm/50 mL D5W 1 GM/50 ML BAG IV SCH (20:16)
[2021-12-11] MEDS: Senna TAB 8.6 mg TAB PO SCH (21:30)
[2021-12-12] MEDS: Polyethylene Glycol 3350 17 GM PACKET PO SCH (08:51)
[2021-12-12] MEDS: Insulin GLARGINE 100 un/ml 10 ml VIAL SUBCUT SCH (08:52)
[2021-12-12] MEDS: cefTRIAXone 1 gm/50 mL D5W 1 GM/50 ML BAG IV SCH (20:05)
[2021-12-12] MEDS: Enoxaparin 40 MG/0.4 ML SYR SUBCUT SCH (21:13)
[2021-12-12] MEDS: Senna TAB 8.6 mg TAB PO SCH (21:14)
[2021-12-13] MEDS: Insulin GLARGINE 100 un/ml 10 ml VIAL SUBCUT SCH (09:40)
[2021-12-13] MEDS: Polyethylene Glycol 3350 17 GM PACKET PO SCH (09:58)
[2021-12-13] MEDS ORDERED: Insulin GLARGINE 100 un/ml 10 ml VIAL SUBCUT SCH (21:00)
[2021-12-13] MEDS: cefTRIAXone 1 gm/50 mL D5W 1 GM/50 ML BAG IV SCH (21:10)
[2021-12-13] MEDS: Enoxaparin 40 MG/0.4 ML SYR SUBCUT SCH (21:12)
[2021-12-13] MEDS: Senna TAB 8.6 mg TAB PO SCH (21:12)
[2021-12-14 08:57] VITALS: BP 99/49
[2021-12-14] MEDS: Polyethylene Glycol 3350 17 GM PACKET PO SCH (10:32)
[2021-12-14 11:55] LABS: Hematocrit 29 % (42-52); Hemoglobin 9.3 g/dL (14.0-18.0); Mean Corpuscular HGB Conc 32 g/dL (31-36); Mean Corpuscular Hemoglobin 24 pg (27-31); Mean Corpuscular Volume 75 fL (80-94); Mean Platelet Volume 8.6 fL (7.4-10.4); Platelet Count 263 10^3/uL (150-450); Red Blood Count 3.92 10^6 /uL (4.18-5.48); Red Cell Distribution Width 33 % (10-15); White Blood Count 5.3 10^3/uL (3.5-10.8)
[2021-12-14 11:56] LABS: C Reactive Protein 18.83 mg/L (<8.01); Calcium 7.9 mg/dL (8.6-10.3); Potassium 4.5 mmol/L (3.5-5.0); eGFR CKD-EPI 109.8 (>60)
[2021-12-14 12:24] LABS: Anisocytosis 1+
[2021-12-14 12:25] LABS: ABS Neutrophils 3.8 10^3/ul (1.5-7.7); Hypochromasia 1+; Target Cells 1+
[2021-12-14 12:26] LABS: ABS Eosinophils 0.1 10^3/ul (0-0.6); ABS Lymphocytes 1.1 10^3/ul (1.0-4.8)
[2021-12-14] MEDS ORDERED: cefTRIAXone 1 gm/50 mL D5W 1 GM/50 ML BAG IV SCH (13:00)
== END 2021-12-14 14:25 | DRG 981 ==
LOC: MEDTELE 11:59 → SUATTDRO 11:59
PROVIDERS: ADMIT Student in an Organized Health Care Education/Training Program; ATTEND Pediatrics

== ENCOUNTER 2022-01-20 11:53 | Inpatient (IN) ==
[2022-01-20] MEDS ORDERED: cefTRIAXone 2 gm/50 mL D5W 2 GM/50 ML BAG IV ONE (12:17)
[2022-01-20] MEDS ORDERED: Lactated Ringers 1000 ml BAG IV.FLUID IV ONE (12:17)
[2022-01-20] MEDS ORDERED: Piperacillin/Tazobac ADVAN 3.375 GM in NS 0.9% 100 ml BAG 100 ML IV ONE (12:23)
[2022-01-20] MEDS ORDERED: Vancomycin 1,000 MG in NS 0.9% 250 ml 250 ML IVPB SCH (13:00)
[2022-01-20 13:36] LABS: Hematocrit 37 % (42-52); Hemoglobin 11.6 g/dL (14.0-18.0); Mean Corpuscular HGB Conc 31 g/dL (31-36); Mean Corpuscular Hemoglobin 27 pg (27-31); Mean Corpuscular Volume 85 fL (80-94); Mean Platelet Volume 6.8 fL (7.4-10.4); Platelet Count 365 10^3/uL (150-450); Red Blood Count 4.34 10^6 /uL (4.18-5.48); Red Cell Distribution Width 24 % (10-15)
[2022-01-20 13:48] LABS: Activated Partial Thrombo Time 28.9 seconds (26.0-38.0); INR 1.3 (0.89-1.11)
[2022-01-20 14:02] LABS: Albumin 2.9 g/dL (3.2-5.2); Albumin/Globulin Ratio 0.9 (1-3); C Reactive Protein 229.49 mg/L (<8.01); Calcium 9.1 mg/dL (8.6-10.3); Globulin 3.1 g/dL (2-4); Potassium 4.7 mmol/L (3.5-5.0); Total Bilirubin 0.4 mg/dL (0.2-1.0); eGFR CKD-EPI 109.1 (>60)
[2022-01-20 14:24] LABS: ABS Eosinophils 0.1 10^3/ul (0-0.6); ABS Lymphocytes 0.4 10^3/ul (1.0-4.8); ABS Monocytes 0.6 10^3/ul (0-0.8); Eosinophil % 0.8 %; Lymphocyte % 4.3 %
[2022-01-20 15:00] LABS: High Sensitivity Troponin 1 Hr 5 pg/mL (<20)
[2022-01-20] MEDS ORDERED: Senna TAB 8.6 mg TAB PO PRN (15:21)
[2022-01-20] MEDS ORDERED: Dextrose 50% Syringe 50 ml 25 GM/50 ML SYRINGE IV PUSH PRN (15:21)
[2022-01-20] MEDS ORDERED: Polyethylene Glycol 3350 17 GM PACKET PO PRN (15:21)
[2022-01-20] MEDS ORDERED: Vancomycin 1,000 MG - ED ONCE IVPB ONE (15:45)
[2022-01-20] MEDS ORDERED: Zosyn per Pharmacy NOTE FOLLOW UP SCH (16:00)
[2022-01-20] MEDS ORDERED: Vancomycin per Pharmacy 1 EA NOTE FOLLOW UP SCH (16:00)
[2022-01-20] MEDS: Lactated Ringers 1000 ml BAG 1,000 ML IV SCH (18:18)
[2022-01-20 18:40] LABS: Erythrocyte Sed Rate 81 mm/Hr (0-19)
[2022-01-20] MEDS: ZOSYN 3.375 GM Q8H per EXTENDED INFUSION IV SCH (19:27)
[2022-01-20] MEDS ORDERED: NS 0.9% 100 ml BAG 100 ML ONE (21:42)
[2022-01-20] MEDS: Heparin 5000 UNITS/ML 1 mL VIAL SUBCUT SCH (22:28)
[2022-01-20] MEDS: Psyllium PAK PO SCH (22:29)
[2022-01-20] MEDS: Insulin GLARGINE 100 un/ml 10 ml VIAL SUBCUT SCH (22:38)
[2022-01-21] MEDS: ZOSYN 3.375 GM Q8H per EXTENDED INFUSION IV SCH ×3 (03:45→18:27)
[2022-01-21] MEDS ORDERED: NS 0.9% 100 ml BAG 100 ML ONE (06:10)
[2022-01-21] MEDS: Heparin 5000 UNITS/ML 1 mL VIAL SUBCUT SCH ×3 (06:27→20:50)
[2022-01-21] MEDS ORDERED: Vancomycin 1000 MG in NS 0.9% 250 ML IVPB SCH ×2 (06:30→21:00)
[2022-01-21] MEDS: Lactated Ringers 1000 ml BAG 1,000 ML IV SCH (06:32)
[2022-01-21 06:34] LABS: Hematocrit 32 % (42-52); Hemoglobin 10.4 g/dL (14.0-18.0); Mean Corpuscular HGB Conc 33 g/dL (31-36); Mean Corpuscular Hemoglobin 28 pg (27-31); Mean Corpuscular Volume 85 fL (80-94); Mean Platelet Volume 7.1 fL (7.4-10.4); Platelet Count 350 10^3/uL (150-450); Red Blood Count 3.75 10^6 /uL (4.18-5.48); Red Cell Distribution Width 23 % (10-15); White Blood Count 6.8 10^3/uL (3.5-10.8)
[2022-01-21 06:43] LABS: ABS Eosinophils 0.3 10^3/ul (0-0.6); ABS Lymphocytes 0.5 10^3/ul (1.0-4.8); ABS Monocytes 0.6 10^3/ul (0-0.8); ABS Neutrophils 5.4 10^3/ul (1.5-7.7); Eosinophil % 4.1 %; Lymphocyte % 7.4 %; Nucleated Red Blood Cells % 0.1
[2022-01-21 06:51] LABS: C Reactive Protein 186.22 mg/L (<8.01); Calcium 8.5 mg/dL (8.6-10.3); Magnesium 1.4 mg/dL (1.9-2.7); Potassium 4.1 mmol/L (3.5-5.0); eGFR CKD-EPI 124.1 (>60)
[2022-01-21] MEDS: Psyllium PAK PO SCH ×2 (09:22→20:51)
[2022-01-21] MEDS ORDERED: Magnesium Sulfate 2 gm BAG 2 GM/50 ML BAG IVPB ONE (11:33)
[2022-01-21] MEDS ORDERED: Gadoteridol (CONTRAST) 279.3 MG/ML 10 ML IV ONE (12:52)
[2022-01-21] MEDS: Insulin GLARGINE 100 un/ml 10 ml VIAL SUBCUT SCH (20:50)
[2022-01-22] MEDS: ZOSYN 3.375 GM Q8H per EXTENDED INFUSION IV SCH ×3 (04:05→17:53)
[2022-01-22] MEDS: Heparin 5000 UNITS/ML 1 mL VIAL SUBCUT SCH ×3 (04:06→23:01)
[2022-01-22] MEDS ORDERED: Vancomycin Trough Check NOTE FOLLOW UP ONE (08:30)
[2022-01-22 08:40] LABS: Hematocrit 30 % (42-52); Hemoglobin 9.6 g/dL (14.0-18.0); Mean Corpuscular HGB Conc 32 g/dL (31-36); Mean Corpuscular Hemoglobin 27 pg (27-31); Mean Corpuscular Volume 84 fL (80-94); Mean Platelet Volume 6.6 fL (7.4-10.4); Platelet Count 321 10^3/uL (150-450); Red Blood Count 3.59 10^6 /uL (4.18-5.48); Red Cell Distribution Width 22 % (10-15); White Blood Count 5.5 10^3/uL (3.5-10.8)
[2022-01-22 09:05] LABS: ABS Basophils 0.1 10^3/ul (0-0.2); ABS Eosinophils 0.3 10^3/ul (0-0.6); ABS Lymphocytes 0.6 10^3/ul (1.0-4.8); ABS Monocytes 0.5 10^3/ul (0-0.8); Eosinophil % 5.3 %; Lymphocyte % 11.6 %
[2022-01-22 09:17] LABS: Calcium 8.2 mg/dL (8.6-10.3); Potassium 3.8 mmol/L (3.5-5.0); eGFR CKD-EPI 118.5 (>60)
[2022-01-22] MEDS: Psyllium PAK PO SCH ×3 (10:21→23:06)
[2022-01-22] MEDS: Insulin GLARGINE 100 un/ml 10 ml VIAL SUBCUT SCH (23:01)
[2022-01-23] MEDS: ZOSYN 3.375 GM Q8H per EXTENDED INFUSION IV SCH ×3 (02:42→17:31)
[2022-01-23] MEDS: Heparin 5000 UNITS/ML 1 mL VIAL SUBCUT SCH ×3 (05:36→20:21)
[2022-01-23] MEDS: Psyllium PAK PO SCH ×2 (09:15→20:20)
[2022-01-23 10:22] LABS: Albumin 2.6 g/dL (3.2-5.2); Albumin/Globulin Ratio 0.9 (1-3); Calcium 8.5 mg/dL (8.6-10.3); Potassium 4.6 mmol/L (3.5-5.0); Total Bilirubin 0.4 mg/dL (0.2-1.0); Total Protein 5.6 g/dL (6.4-8.9); eGFR CKD-EPI 109.1 (>60)
[2022-01-23] MEDS: Insulin GLARGINE 100 un/ml 10 ml VIAL SUBCUT SCH (20:21)
[2022-01-24] MEDS: ZOSYN 3.375 GM Q8H per EXTENDED INFUSION IV SCH ×3 (02:30→17:54)
[2022-01-24] MEDS: Heparin 5000 UNITS/ML 1 mL VIAL SUBCUT SCH ×3 (06:08→21:59)
[2022-01-24] MEDS ORDERED: Simethicone SUSP ORALSYR 66.66 MG/ML PO PRN (09:28)
[2022-01-24] MEDS ORDERED: Lactated Ringers 1000 ml BAG 1,000 ML IV SCH (10:00)
[2022-01-24 10:23] LABS: Hematocrit 33 % (42-52); Hemoglobin 10.6 g/dL (14.0-18.0); Mean Corpuscular HGB Conc 32 g/dL (31-36); Mean Corpuscular Hemoglobin 27 pg (27-31); Mean Corpuscular Volume 84 fL (80-94); Mean Platelet Volume 6.6 fL (7.4-10.4); Platelet Count 424 10^3/uL (150-450); Red Blood Count 3.94 10^6 /uL (4.18-5.48); Red Cell Distribution Width 22 % (10-15)
[2022-01-24 10:45] LABS: ABS Basophils 0.1 10^3/ul (0-0.2); ABS Eosinophils 0.3 10^3/ul (0-0.6); ABS Lymphocytes 0.9 10^3/ul (1.0-4.8); ABS Monocytes 0.6 10^3/ul (0-0.8); Eosinophil % 3.5 %; Lymphocyte % 11.6 %; Nucleated Red Blood Cells % 0.1
[2022-01-24 11:09] LABS: Albumin 2.7 g/dL (3.2-5.2); Calcium 8.6 mg/dL (8.6-10.3); Globulin 2.7 g/dL (2-4); Potassium 4.2 mmol/L (3.5-5.0); Total Bilirubin 0.2 mg/dL (0.2-1.0); Total Protein 5.4 g/dL (6.4-8.9); eGFR CKD-EPI 109.8 (>60)
[2022-01-24] MEDS: Psyllium PAK PO SCH ×2 (12:07→21:55)
[2022-01-24] MEDS ORDERED: Senna TAB 8.6 mg TAB PO SCH (21:00)
[2022-01-24] MEDS: Senna TAB 8.6 mg TAB PO SCH (21:56)
[2022-01-24] MEDS: Insulin GLARGINE 100 un/ml 10 ml VIAL SUBCUT SCH (21:59)
[2022-01-25] MEDS: ZOSYN 3.375 GM Q8H per EXTENDED INFUSION IV SCH ×2 (02:35→10:32)
[2022-01-25] MEDS ORDERED: Dextrose 50% Syringe 50 ml 25 GM/50 ML SYRINGE IV PUSH PRN (03:35)
[2022-01-25] MEDS: Heparin 5000 UNITS/ML 1 mL VIAL SUBCUT SCH ×3 (05:22→21:16)
[2022-01-25 06:18] LABS: Hematocrit 31 % (42-52); Hemoglobin 10.1 g/dL (14.0-18.0); Mean Corpuscular HGB Conc 33 g/dL (31-36); Mean Corpuscular Hemoglobin 28 pg (27-31); Mean Corpuscular Volume 85 fL (80-94); Mean Platelet Volume 6.9 fL (7.4-10.4); Platelet Count 366 10^3/uL (150-450); Red Blood Count 3.63 10^6 /uL (4.18-5.48); Red Cell Distribution Width 21 % (10-15)
[2022-01-25 06:32] LABS: INR 1.15 (0.89-1.11)
[2022-01-25 06:36] LABS: ABS Basophils 0.1 10^3/ul (0-0.2); ABS Eosinophils 0.3 10^3/ul (0-0.6); ABS Lymphocytes 0.8 10^3/ul (1.0-4.8); ABS Monocytes 0.6 10^3/ul (0-0.8); ABS Neutrophils 6.1 10^3/ul (1.5-7.7); Eosinophil % 4.3 %; Lymphocyte % 10.2 %
[2022-01-25 06:56] LABS: Calcium 8.4 mg/dL (8.6-10.3); Magnesium 1.8 mg/dL (1.9-2.7); Phosphorus 2.3 mg/dL (2.5-5.0); Potassium 3.9 mmol/L (3.5-5.0); eGFR CKD-EPI 109.8 (>60)
[2022-01-25] MEDS ORDERED: Insulin GLARGINE 100 un/ml 10 ml VIAL SUBCUT ONE (07:03)
[2022-01-25] MEDS ORDERED: Magnesium Sulfate 2 gm BAG 2 GM/50 ML BAG IVPB ONE (07:29)
[2022-01-25] MEDS ORDERED: Potassium Phosphate IV 10 MMOLE in NS 0.9% 250 ml 250 ML IVPB ONE (08:30)
[2022-01-25] MEDS: Psyllium PAK PO SCH ×2 (08:50→20:55)
[2022-01-25 15:36] LABS: C Reactive Protein 60.15 mg/L (<8.01)
[2022-01-25] MEDS: Senna TAB 8.6 mg TAB PO SCH (20:55)
[2022-01-25] MEDS: Insulin GLARGINE 100 un/ml 10 ml VIAL SUBCUT SCH (21:17)
[2022-01-26] MEDS: Heparin 5000 UNITS/ML 1 mL VIAL SUBCUT SCH ×3 (05:07→22:02)
[2022-01-26 05:54] LABS: Hematocrit 34 % (42-52); Hemoglobin 10.8 g/dL (14.0-18.0); Mean Corpuscular HGB Conc 32 g/dL (31-36); Mean Corpuscular Hemoglobin 27 pg (27-31); Mean Corpuscular Volume 85 fL (80-94); Mean Platelet Volume 6.7 fL (7.4-10.4); Platelet Count 381 10^3/uL (150-450); Red Blood Count 3.95 10^6 /uL (4.18-5.48); Red Cell Distribution Width 22 % (10-15); White Blood Count 8.8 10^3/uL (3.5-10.8)
[2022-01-26 06:25] LABS: ABS Basophils 0.1 10^3/ul (0-0.2); ABS Eosinophils 0.3 10^3/ul (0-0.6); ABS Lymphocytes 0.7 10^3/ul (1.0-4.8); ABS Monocytes 0.5 10^3/ul (0-0.8); ABS Neutrophils 7.2 10^3/ul (1.5-7.7); Eosinophil % 3.5 %; Lymphocyte % 7.5 %
[2022-01-26 06:35] LABS: Calcium 8.5 mg/dL (8.6-10.3); Magnesium 1.9 mg/dL (1.9-2.7); Phosphorus 2.8 mg/dL (2.5-5.0); Potassium 4.3 mmol/L (3.5-5.0); eGFR CKD-EPI 110.6 (>60)
[2022-01-26 09:08] LABS: Ferritin 106.6 ng/mL (24-336)
[2022-01-26] MEDS: Psyllium PAK PO SCH ×2 (09:27→22:02)
[2022-01-26] MEDS: Simethicone SUSP ORALSYR 66.66 MG/ML PO SCH (09:45)
[2022-01-26] MEDS: DULoxetine DR 60 mg CAP PO SCH (12:31)
[2022-01-26] MEDS: Senna TAB 8.6 mg TAB PO SCH (22:02)
[2022-01-26] MEDS: Insulin GLARGINE 100 un/ml 10 ml VIAL SUBCUT SCH (22:09)
[2022-01-27] MEDS: Heparin 5000 UNITS/ML 1 mL VIAL SUBCUT SCH ×3 (05:28→22:50)
[2022-01-27] MEDS: Simethicone SUSP ORALSYR 66.66 MG/ML PO SCH (07:45)
[2022-01-27] MEDS: Psyllium PAK PO SCH ×3 (07:45→20:31)
[2022-01-27] MEDS: DULoxetine DR 60 mg CAP PO SCH (07:45)
[2022-01-27] MEDS ORDERED: Dextrose 50% Syringe 50 ml 25 GM/50 ML SYRINGE IV PUSH PRN (08:51)
[2022-01-27] MEDS: Senna TAB 8.6 mg TAB PO SCH (20:31)
[2022-01-27] MEDS ORDERED: Insulin GLARGINE 100 un/ml 10 ml VIAL SUBCUT SCH (21:00)
[2022-01-28] MEDS: Heparin 5000 UNITS/ML 1 mL VIAL SUBCUT SCH ×2 (06:07→14:10)
[2022-01-28 07:48] VITALS: BP 139/67
[2022-01-28] MEDS: DULoxetine DR 60 mg CAP PO SCH (10:25)
[2022-01-28] MEDS: Simethicone SUSP ORALSYR 66.66 MG/ML PO SCH (10:29)
[2022-01-28 11:45] LABS: Rapid COVID-19 Molecular Detected (Undetected)
[2022-01-28] MEDS: Psyllium PAK PO SCH (13:16)
== END 2022-01-28 14:30 | DRG 871 ==
LOC: ED 11:53 → SUATTDRO 15:18 → EDHOLD 15:18 → SSU 17:02 → MED 01-24 08:24
PROVIDERS: ADMIT Internal Medicine; ATTEND Student in an Organized Health Care Education/Training Program

== ENCOUNTER 2022-03-19 13:03 | Inpatient (IN) ==
[2022-03-19] MEDS ORDERED: Iodixanol (CONTRAST) 320 MG/ML 100 ML SDV IV ONE (13:18)
[2022-03-19 13:39] LABS: ABS Lymphocytes 0.5 10^3/ul (1.0-4.8); ABS Monocytes 0.4 10^3/ul (0-0.8); ABS Neutrophils 13.1 10^3/ul (1.5-7.7); Eosinophil % 0.1 %; Hematocrit 34 % (42-52); Hemoglobin 10.6 g/dL (14.0-18.0); Lymphocyte % 3.7 %; Mean Corpuscular HGB Conc 31 g/dL (31-36); Mean Corpuscular Hemoglobin 27 pg (27-31); Mean Corpuscular Volume 87 fL (80-94); Platelet Count 378 10^3/uL (150-450); Red Blood Count 3.92 10^6 /uL (4.18-5.48); Red Cell Distribution Width 16 % (10-15); White Blood Count 14.1 10^3/uL (3.5-10.8)
[2022-03-19 13:56] LABS: Activated Partial Thrombo Time 29.2 seconds (26.0-38.0); INR 1.03 (0.89-1.11)
[2022-03-19 14:15] LABS: Albumin 2.9 g/dL (3.2-5.2); CO2 Carbon Dioxide 28 mmol/L (22-32); Calcium 8.8 mg/dL (8.6-10.3); Chloride 99 mmol/L (101-111); Sodium 134 mmol/L (135-145)
[2022-03-19 14:16] LABS: Anion Gap 7 mmol/L (2-11)
[2022-03-19 14:21] LABS: ALT 12 U/L (7-52); Alkaline Phosphatase 87 U/L (35-149); Blood Urea Nitrogen 16 mg/dL (6-24); Cholesterol 185 mg/dL; Globulin 2.9 g/dL (2-4); Glucose 458 mg/dL (70-100); HDL Cholesterol 67.7 mg/dL; LDL Cholesterol 103 mg/dL; Total Protein 5.8 g/dL (6.4-8.9); Triglycerides 74 mg/dL; eGFR CKD-EPI 104.5 (>60)
[2022-03-19] MEDS ORDERED: NS 0.9% 1000 ml BAG 1,000 ML IV ONE (14:37)
[2022-03-19] MEDS ORDERED: Piperacillin/Tazobac ADVAN 3.375 GM in NS 0.9% 100 ml BAG 100 ML IV ONE (15:24)
[2022-03-19 16:13] LABS: C Reactive Protein 34.16 mg/L (<8.01)
[2022-03-19] MEDS ORDERED: Ondansetron 4 mg VIAL 2 MG/ML 2 ml VIAL IV PRN (18:03)
[2022-03-19] MEDS ORDERED: Dextrose 50% Syringe 50 ml 25 GM/50 ML SYRINGE IV PUSH PRN (18:05)
[2022-03-19] MEDS ORDERED: Polyethylene Glycol 3350 17 GM PACKET PO PRN (18:10)
[2022-03-19] MEDS ORDERED: Simethicone SUSP ORALSYR 66.66 MG/ML PO PRN (18:10)
[2022-03-19] MEDS ORDERED: Lactated Ringers 1000 ml BAG 1,000 ML IV SCH (19:00)
[2022-03-19] MEDS: cefTRIAXone 1 gm/50 mL D5W 1 GM/50 ML BAG IV SCH (19:01)
[2022-03-19] MEDS: Enoxaparin 40 MG/0.4 ML SYR SUBCUT SCH (19:01)
[2022-03-19] MEDS ORDERED: DOXYcycline 100 MG in NS 0.9% 250 ml 250 ML IVPB SCH (20:00)
[2022-03-19] MEDS: Insulin GLARGINE 100 un/ml 10 ml VIAL SUBCUT SCH (22:56)
[2022-03-20] MEDS: DOXYcycline 100 MG in NS 0.9% 250 ml 250 ML IVPB SCH ×3 (00:05→23:59)
[2022-03-20 07:01] LABS: ABS Basophils 0.1 10^3/ul (0-0.2); ABS Eosinophils 0.4 10^3/ul (0-0.6); ABS Monocytes 0.4 10^3/ul (0-0.8); ABS Neutrophils 5.5 10^3/ul (1.5-7.7); Eosinophil % 4.8 %; Hematocrit 35 % (42-52); Hemoglobin 11.1 g/dL (14.0-18.0); Lymphocyte % 13.9 %; Mean Corpuscular HGB Conc 32 g/dL (31-36); Mean Corpuscular Hemoglobin 28 pg (27-31); Mean Corpuscular Volume 87 fL (80-94); Platelet Count 322 10^3/uL (150-450); Red Blood Count 3.99 10^6 /uL (4.18-5.48); Red Cell Distribution Width 17 % (10-15); White Blood Count 7.4 10^3/uL (3.5-10.8)
[2022-03-20 07:14] LABS: Calcium 8.7 mg/dL (8.6-10.3); Magnesium 1.8 mg/dL (1.9-2.7); Potassium 3.8 mmol/L (3.5-5.0); eGFR CKD-EPI 114.7 (>60)
[2022-03-20] MEDS ORDERED: Magnesium Sulfate 2 gm BAG 2 GM/50 ML BAG IVPB ONE (07:23)
[2022-03-20] MEDS: DULoxetine DR 60 mg CAP PO SCH (08:12)
[2022-03-20] MEDS ORDERED: Aspirin EC 81 mg TAB.EC (enteric coated) PO SCH (09:00)
[2022-03-20] MEDS ORDERED: Lactated Ringers 1000 ml BAG 1,000 ML IV SCH (11:00)
[2022-03-20] MEDS: cefTRIAXone 1 gm/50 mL D5W 1 GM/50 ML BAG IV SCH (17:42)
[2022-03-20] MEDS: Enoxaparin 40 MG/0.4 ML SYR SUBCUT SCH (17:42)
[2022-03-20 19:40] LABS: Urine Appearance Clear; Urine Bilirubin Negative (Negative); Urine Blood Negative (Negative); Urine Color Straw; Urine Glucose Negative (Negative); Urine Ketones Negative (Negative); Urine Nitrite Negative (Negative); Urine Protein Negative (Negative); Urine Urobilinogen 0.2 (Negative) (Negative)
[2022-03-20] MEDS: Insulin GLARGINE 100 un/ml 10 ml VIAL SUBCUT SCH (22:18)
[2022-03-21 05:45] LABS: ABS Lymphocytes 0.6 10^3/ul (1.0-4.8); ABS Monocytes 0.6 10^3/ul (0-0.8); ABS Neutrophils 6.6 10^3/ul (1.5-7.7); Eosinophil % 0.3 %; Hematocrit 32 % (42-52); Lymphocyte % 7.6 %; Mean Corpuscular HGB Conc 32 g/dL (31-36); Mean Corpuscular Hemoglobin 27 pg (27-31); Mean Corpuscular Volume 85 fL (80-94); Mean Platelet Volume 6.5 fL (7.4-10.4); Platelet Count 398 10^3/uL (150-450); Red Blood Count 3.71 10^6 /uL (4.18-5.48); Red Cell Distribution Width 17 % (10-15); White Blood Count 7.8 10^3/uL (3.5-10.8)
[2022-03-21 06:08] LABS: Anion Gap 8 mmol/L (2-11); Blood Urea Nitrogen 8 mg/dL (6-24); CO2 Carbon Dioxide 29 mmol/L (22-32); Calcium 8.6 mg/dL (8.6-10.3); Chloride 105 mmol/L (101-111); Potassium 3.7 mmol/L (3.5-5.0); Sodium 142 mmol/L (135-145); eGFR CKD-EPI 121.7 (>60)
[2022-03-21 06:11] LABS: Glucose 32 mg/dL (70-100)
[2022-03-21] MEDS: DULoxetine DR 60 mg CAP PO SCH (08:20)
[2022-03-21] MEDS ORDERED: cefTRIAXone 1 gm/50 mL NS BAG 1 GM/50 ML BAG IV SCH (11:00)
[2022-03-21] MEDS: DOXYcycline 100 MG in NS 0.9% 250 ml 250 ML IVPB SCH (12:11)
[2022-03-21 15:08] LABS: TSH Ultra Thyroid Stim Horm 4.38 mcIU/mL (0.34-5.60)
[2022-03-21 15:19] LABS: Folate > 20.00 ng/mL (5.90-24.80); Vitamin B12 444 pg/mL (180-914)
[2022-03-21] MEDS: cefTRIAXone 1 gm/50 mL NS BAG 1 GM/50 ML BAG IV SCH (17:29)
[2022-03-21] MEDS: Enoxaparin 40 MG/0.4 ML SYR SUBCUT SCH (17:32)
[2022-03-21] MEDS ORDERED: Insulin GLARGINE 100 un/ml 10 ml VIAL SUBCUT SCH (21:00)
[2022-03-22] MEDS: DOXYcycline 100 MG in NS 0.9% 250 ml 250 ML IVPB SCH ×2 (00:52→12:37)
[2022-03-22 06:29] LABS: ABS Eosinophils 0.4 10^3/ul (0-0.6); ABS Lymphocytes 0.9 10^3/ul (1.0-4.8); ABS Monocytes 0.6 10^3/ul (0-0.8); Eosinophil % 3.4 %; Hematocrit 32 % (42-52); Hemoglobin 10.3 g/dL (14.0-18.0); Lymphocyte % 7.8 %; Mean Corpuscular HGB Conc 32 g/dL (31-36); Mean Corpuscular Hemoglobin 27 pg (27-31); Mean Corpuscular Volume 86 fL (80-94); Mean Platelet Volume 6.9 fL (7.4-10.4); Platelet Count 352 10^3/uL (150-450); Red Blood Count 3.77 10^6 /uL (4.18-5.48); Red Cell Distribution Width 17 % (10-15); White Blood Count 12.1 10^3/uL (3.5-10.8)
[2022-03-22 07:18] LABS: C Reactive Protein 55.56 mg/L (<8.01); Calcium 8.7 mg/dL (8.6-10.3); eGFR CKD-EPI 114.7 (>60)
[2022-03-22] MEDS: cefTRIAXone 1 gm/50 mL NS BAG 1 GM/50 ML BAG IV SCH (10:12)
[2022-03-22] MEDS: DULoxetine DR 60 mg CAP PO SCH (10:18)
[2022-03-22] MEDS: Enoxaparin 40 MG/0.4 ML SYR SUBCUT SCH (18:17)
[2022-03-22] MEDS ORDERED: Insulin GLARGINE 100 un/ml 10 ml VIAL SUBCUT SCH (21:00)
[2022-03-23] MEDS: DOXYcycline 100 MG in NS 0.9% 250 ml 250 ML IVPB SCH ×2 (00:20→12:20)
[2022-03-23] MEDS: DULoxetine DR 60 mg CAP PO SCH (09:07)
[2022-03-23] MEDS: cefTRIAXone 1 gm/50 mL NS BAG 1 GM/50 ML BAG IV SCH (09:14)
[2022-03-23 10:49] VITALS: BP 142/62
== END 2022-03-23 14:07 | DRG 70 ==
LOC: EDHOLD 13:03 → ED 13:03 → EDHOLD 20:06 → MEDTELE 20:34 → SUATTDRO 03-21 16:28
PROVIDERS: ADMIT Hospitalist; ATTEND Internal Medicine

== ENCOUNTER 2022-06-12 19:59 | Observation (INO) ==
[2022-06-12 20:56] LABS: ABS Basophils 0.1 10^3/ul (0-0.2); ABS Eosinophils 0.3 10^3/ul (0-0.6); ABS Lymphocytes 1.1 10^3/ul (1.0-4.8); ABS Monocytes 1.1 10^3/ul (0-0.8); ABS Neutrophils 5.8 10^3/ul (1.5-7.7); Eosinophil % 3.9 %; Hematocrit 23 % (42-52); Lymphocyte % 12.9 %; Mean Corpuscular HGB Conc 31 g/dL (31-36); Mean Corpuscular Hemoglobin 24 pg (27-31); Mean Corpuscular Volume 79 fL (80-94); Platelet Count 385 10^3/uL (150-450); Red Blood Count 2.91 10^6 /uL (4.18-5.48); Red Cell Distribution Width 18 % (10-15); White Blood Count 8.4 10^3/uL (3.5-10.8)
[2022-06-12 21:08] LABS: Activated Partial Thrombo Time 28.5 seconds (26.0-38.0); INR 1.17 (0.89-1.11)
[2022-06-12 21:26] LABS: Albumin 2.6 g/dL (3.2-5.2); C Reactive Protein 86.27 mg/L (<8.01); Calcium 8.2 mg/dL (8.6-10.3); Creatinine, Serum 0.4 mg/dL (0.67-1.17); Globulin 2.5 g/dL (2-4); Potassium 4.3 mmol/L (3.5-5.0); Total Bilirubin 0.2 mg/dL (0.2-1.0); Total Protein 5.1 g/dL (6.4-8.9); eGFR CKD-EPI 113.8 (>60)
[2022-06-12] MEDS ORDERED: Pantoprazole VIAL 40 MG VIAL IV ONE (21:40)
[2022-06-12 22:17] LABS: High Sensitivity Troponin 1 Hr 5 pg/mL (<20)
[2022-06-13 08:37] LABS: Hematocrit 29 % (42-52)
[2022-06-13] MEDS ORDERED: NS 0.9% 1000 ml BAG 1,000 ML IV SCH (09:30)
[2022-06-13] MEDS ORDERED: Dextrose 50% Syringe 50 ml 25 GM/50 ML SYRINGE IV PUSH PRN (12:04)
[2022-06-13] MEDS ORDERED: Polyethylene Glycol 3350 17 GM PACKET PO PRN (12:08)
[2022-06-13] MEDS: DULoxetine DR 60 mg CAP PO SCH (15:16)
[2022-06-13] MEDS ORDERED: Acetaminophen IV 1 GM/100ML 1,000 MG/100 ML BAG IV PRN (15:21)
[2022-06-13] MEDS ORDERED: Lansoprazole SUSP ORALSYR 3 MG/ML PO SCH (15:30)
[2022-06-13] MEDS: Iron Sucrose 200 MG in NS 0.9% 100 ml BAG 100 ML IVPB SCH (15:41)
[2022-06-13] MEDS: Pantoprazole VIAL 40 MG VIAL IV SCH ×2 (18:24→21:34)
[2022-06-13 20:23] LABS: Hematocrit 28 % (42-52); Hemoglobin 9.2 g/dL (14.0-18.0)
[2022-06-13] MEDS ORDERED: Insulin GLARGINE 100 un/ml 10 ml VIAL SUBCUT SCH (21:00)
[2022-06-14 07:08] LABS: ABS Eosinophils 0.2 10^3/ul (0-0.6); ABS Lymphocytes 0.9 10^3/ul (1.0-4.8); ABS Monocytes 0.6 10^3/ul (0-0.8); ABS Neutrophils 5.1 10^3/ul (1.5-7.7); Eosinophil % 3.6 %; Hematocrit 31 % (42-52); Hemoglobin 9.4 g/dL (14.0-18.0); Lymphocyte % 12.8 %; Mean Corpuscular HGB Conc 31 g/dL (31-36); Mean Corpuscular Hemoglobin 24 pg (27-31); Mean Corpuscular Volume 79 fL (80-94); Platelet Count 368 10^3/uL (150-450); Red Blood Count 3.88 10^6 /uL (4.18-5.48); Red Cell Distribution Width 17 % (10-15); White Blood Count 6.8 10^3/uL (3.5-10.8)
[2022-06-14 07:25] LABS: Calcium 8.7 mg/dL (8.6-10.3); Creatinine, Serum 0.33 mg/dL (0.67-1.17); Potassium 3.9 mmol/L (3.5-5.0); eGFR CKD-EPI 120.6 (>60)
[2022-06-14] MEDS: Pantoprazole VIAL 40 MG VIAL IV SCH (08:22)
[2022-06-14] MEDS: DULoxetine DR 60 mg CAP PO SCH (08:23)
[2022-06-14] MEDS: Iron Sucrose 200 MG in NS 0.9% 100 ml BAG 100 ML IVPB SCH (08:23)
[2022-06-14 11:13] VITALS: BP 130/75
== END 2022-06-14 17:10 ==
LOC: EDHOLD 19:59 → ED 19:59 → SUATTDRO 06-13 12:16 → MED 06-13 18:38
PROVIDERS: ADMIT Internal Medicine; ATTEND Hospitalist

== ENCOUNTER 2022-06-25 18:50 | Inpatient (IN) ==
[2022-06-25] MEDS ORDERED: Iodixanol (CONTRAST) 320 MG/ML 100 ML SDV IV ONE (19:02)
[2022-06-25 20:02] LABS: ABS Lymphocytes 0.4 10^3/ul (1.0-4.8); ABS Monocytes 0.4 10^3/ul (0-0.8); ABS Neutrophils 6.2 10^3/ul (1.5-7.7); Eosinophil % 0.1 %; Hematocrit 30 % (42-52); Lymphocyte % 6.1 %; Mean Corpuscular HGB Conc 30 g/dL (31-36); Mean Corpuscular Hemoglobin 25 pg (27-31); Mean Corpuscular Volume 83 fL (80-94); Mean Platelet Volume 7.9 fL (7.4-10.4); Platelet Count 231 10^3/uL (150-450); Red Blood Count 3.57 10^6 /uL (4.18-5.48); Red Cell Distribution Width 21 % (10-15); White Blood Count 7.1 10^3/uL (3.5-10.8)
[2022-06-25 20:12] LABS: Activated Partial Thrombo Time 30.8 seconds (26.0-38.0); INR 1.18 (0.88-1.18)
[2022-06-25] MEDS ORDERED: Lactated Ringers 1000 ml BAG 1,000 ML IV ONE ×2 (20:30→23:20)
[2022-06-25 20:44] LABS: Albumin 2.8 g/dL (3.2-5.2); Albumin/Globulin Ratio 0.9 (1-3); Calcium 8.5 mg/dL (8.6-10.3); HDL Cholesterol 53.7 mg/dL; Total Bilirubin 0.2 mg/dL (0.2-1.0); Total Protein 5.8 g/dL (6.4-8.9); eGFR CKD-EPI 105.7 (>60)
[2022-06-25] MEDS ORDERED: Aspirin EC 81 mg TAB.EC (enteric coated) PO ONE (21:24)
[2022-06-25 21:48] LABS: Urine Appearance Cloudy; Urine Bilirubin Negative (Negative); Urine Color Yellow; Urine Glucose Negative (Negative); Urine Ketones Negative (Negative)
[2022-06-25 21:49] LABS: Urine Blood Negative (Negative); Urine Nitrite Negative (Negative); Urine Protein Negative (Negative); Urine Specific Gravity 1.015 (1.005-1.030); Urine Urobilinogen 1.0 (Negative) (Negative); Urine pH 7.5 (5.0-9.0)
[2022-06-25 23:13] LABS: High Sensitivity Troponin 1 Hr 17 pg/mL (<20)
[2022-06-25] MEDS ORDERED: Dextrose 50% Syringe 50 ml 25 GM/50 ML SYRINGE IV PUSH PRN (23:23)
[2022-06-26] MEDS ORDERED: Piperacillin/Tazobac ADVAN 3.375 GM in NS 0.9% 100 ml BAG 100 ML IV ONE (01:40)
[2022-06-26] MEDS ORDERED: Zosyn per Pharmacy NOTE FOLLOW UP SCH (02:00)
[2022-06-26 02:13] LABS: C Reactive Protein 141.43 mg/L (<8.01)
[2022-06-26] MEDS: Azithromycin 500 mg/250 ml NS 500 MG/250 ML BAG IVPB SCH (04:47)
[2022-06-26] MEDS: Levothyroxine 100 MCG/5 ML VIAL IV SCH (05:50)
[2022-06-26] MEDS ORDERED: Iodixanol (CONTRAST) 320 MG/ML 100 ML SDV IV ONE (07:12)
[2022-06-26] MEDS: Pantoprazole VIAL 40 MG VIAL IV SCH (08:22)
[2022-06-26] MEDS: ZOSYN 3.375 GM Q8H per EXTENDED INFUSION IV SCH ×2 (08:23→17:26)
[2022-06-26] MEDS ORDERED: Acetaminophen IV 1 GM/100ML 1,000 MG/100 ML BAG IV PRN (16:06)
[2022-06-26] MEDS: Heparin 5000 UNITS/ML 1 mL VIAL SUBCUT SCH (23:01)
[2022-06-26] MEDS: Oseltamivir SUSP ORALSYR 6 MG/ML PO SCH (23:02)
[2022-06-27] MEDS: NS 0.9% 1000 ml BAG 1,000 ML IV SCH ×3 (00:44→22:04)
[2022-06-27] MEDS: ZOSYN 3.375 GM Q8H per EXTENDED INFUSION IV SCH ×3 (00:44→17:52)
[2022-06-27] MEDS: Azithromycin 500 mg/250 ml NS 500 MG/250 ML BAG IVPB SCH ×2 (05:15→11:37)
[2022-06-27] MEDS: Heparin 5000 UNITS/ML 1 mL VIAL SUBCUT SCH ×3 (05:59→21:15)
[2022-06-27] MEDS: Levothyroxine 100 MCG/5 ML VIAL IV SCH (06:36)
[2022-06-27 08:23] LABS: ABS Lymphocytes 0.6 10^3/ul (1.0-4.8); ABS Monocytes 0.4 10^3/ul (0-0.8); ABS Neutrophils 5.9 10^3/ul (1.5-7.7); Hematocrit 30 % (42-52); Hemoglobin 9.4 g/dL (14.0-18.0); Lymphocyte % 8.6 %; Mean Corpuscular HGB Conc 32 g/dL (31-36); Mean Corpuscular Hemoglobin 26 pg (27-31); Mean Corpuscular Volume 81 fL (80-94); Mean Platelet Volume 7.9 fL (7.4-10.4); Platelet Count 205 10^3/uL (150-450); Red Blood Count 3.67 10^6 /uL (4.18-5.48); Red Cell Distribution Width 20 % (10-15); White Blood Count 6.9 10^3/uL (3.5-10.8)
[2022-06-27] MEDS: Pantoprazole VIAL 40 MG VIAL IV SCH (09:13)
[2022-06-27 09:21] LABS: Anion Gap 9 mmol/L (2-11); Blood Urea Nitrogen 14 mg/dL (6-24); CO2 Carbon Dioxide 27 mmol/L (22-32); Calcium 7.7 mg/dL (8.6-10.3); Chloride 105 mmol/L (101-111); Glucose 297 mg/dL (70-100); Potassium 3.7 mmol/L (3.5-5.0); Sodium 141 mmol/L (135-145); Total Iron Binding Capacity 200 mcg/dL (250-450); Transferrin 143 mg/dL (203-362); eGFR CKD-EPI 118.8 (>60)
[2022-06-27 09:25] LABS: % Iron Saturation 10 % (15-55); Iron < 20 ug/dL (50-212); Unsaturated Iron Binding 180 ug/dL
[2022-06-27 09:42] LABS: Ferritin 292.6 ng/mL (24-336)
[2022-06-27 09:46] LABS: Folate > 20.00 ng/mL (5.90-24.80)
[2022-06-27 09:47] LABS: Vitamin B12 505 pg/mL (180-914)
[2022-06-27] MEDS: Oseltamivir SUSP ORALSYR 6 MG/ML PO SCH ×2 (12:02→21:16)
[2022-06-27] MEDS: Insulin GLARGINE 100 un/ml 10 ml VIAL SUBCUT SCH (21:13)
[2022-06-28] MEDS: ZOSYN 3.375 GM Q8H per EXTENDED INFUSION IV SCH ×3 (01:23→17:02)
[2022-06-28] MEDS: Azithromycin 500 mg/250 ml NS 500 MG/250 ML BAG IVPB SCH (05:55)
[2022-06-28] MEDS: Heparin 5000 UNITS/ML 1 mL VIAL SUBCUT SCH ×3 (05:55→22:05)
[2022-06-28] MEDS: Oseltamivir SUSP ORALSYR 6 MG/ML PO SCH ×2 (09:35→22:05)
[2022-06-28] MEDS: Pantoprazole VIAL 40 MG VIAL IV SCH (09:35)
[2022-06-28] MEDS: NS 0.9% 1000 ml BAG 1,000 ML IV SCH (12:00)
[2022-06-28 17:39] LABS: Urine Appearance Clear; Urine Bilirubin Negative (Negative); Urine Blood Negative (Negative); Urine Color Yellow; Urine Glucose Negative (Negative); Urine Ketones Negative (Negative); Urine Nitrite Negative (Negative); Urine Protein Negative (Negative); Urine Specific Gravity 1.025 (1.005-1.030); Urine Urobilinogen 1.0 (Negative) (Negative); Urine pH 7.5 (5.0-9.0)
[2022-06-28] MEDS: Insulin GLARGINE 100 un/ml 10 ml VIAL SUBCUT SCH (22:05)
[2022-06-29] MEDS: ZOSYN 3.375 GM Q8H per EXTENDED INFUSION IV SCH ×4 (03:19→23:56)
[2022-06-29] MEDS: Heparin 5000 UNITS/ML 1 mL VIAL SUBCUT SCH ×3 (05:50→21:30)
[2022-06-29] MEDS: Pantoprazole VIAL 40 MG VIAL IV SCH (07:48)
[2022-06-29 10:10] LABS: ABS Lymphocytes 0.5 10^3/ul (1.0-4.8); ABS Monocytes 0.3 10^3/ul (0-0.8); ABS Neutrophils 3.1 10^3/ul (1.5-7.7); Eosinophil % 0.2 %; Hematocrit 31 % (42-52); Hemoglobin 9.7 g/dL (14.0-18.0); Lymphocyte % 13.4 %; Mean Corpuscular HGB Conc 31 g/dL (31-36); Mean Corpuscular Hemoglobin 25 pg (27-31); Mean Corpuscular Volume 80 fL (80-94); Platelet Count 222 10^3/uL (150-450); Red Blood Count 3.93 10^6 /uL (4.18-5.48); Red Cell Distribution Width 20 % (10-15); White Blood Count 3.9 10^3/uL (3.5-10.8)
[2022-06-29] MEDS: Oseltamivir SUSP ORALSYR 6 MG/ML PO SCH ×2 (10:26→22:36)
[2022-06-29] MEDS: NS 0.9% 1000 ml BAG 1,000 ML IV SCH ×2 (10:26→21:32)
[2022-06-29 10:27] LABS: Calcium 7.7 mg/dL (8.6-10.3); Potassium 3.3 mmol/L (3.5-5.0)
[2022-06-29 11:06] LABS: eGFR CKD-EPI 128.8 (>60)
[2022-06-29] MEDS ORDERED: Potassium Chloride LIQUID 20 MEQ/15 ML LIQUID PO ONE (11:53)
[2022-06-29] MEDS: Insulin GLARGINE 100 un/ml 10 ml VIAL SUBCUT SCH (21:30)
[2022-06-30] MEDS: Heparin 5000 UNITS/ML 1 mL VIAL SUBCUT SCH ×3 (05:43→22:34)
[2022-06-30 08:49] LABS: Calcium 7.6 mg/dL (8.6-10.3); Magnesium 1.5 mg/dL (1.9-2.7); Potassium 3.1 mmol/L (3.5-5.0)
[2022-06-30 08:50] LABS: eGFR CKD-EPI 131.9 (>60)
[2022-06-30] MEDS: Pantoprazole VIAL 40 MG VIAL IV SCH (10:23)
[2022-06-30] MEDS: ZOSYN 3.375 GM Q8H per EXTENDED INFUSION IV SCH (10:23)
[2022-06-30] MEDS ORDERED: Magnesium Sulf 4 GM/100 ML IV 4,000 MG/100 ML BAG IVPB ONE (10:27)
[2022-06-30] MEDS: NS 0.9% 1000 ml BAG 1,000 ML IV SCH (10:27)
[2022-06-30] MEDS ORDERED: Potassium Chloride LIQUID 20 MEQ/15 ML LIQUID PO SCH (11:00)
[2022-06-30] MEDS: Oseltamivir SUSP ORALSYR 6 MG/ML PO SCH ×2 (11:25→22:34)
[2022-06-30] MEDS: KCL 20 MEQ/100 ML IVPREMIX 20 MEQ/100 ML BAG IV SCH ×3 (15:45→20:55)
[2022-06-30] MEDS: Insulin GLARGINE 100 un/ml 10 ml VIAL SUBCUT SCH (22:34)
[2022-07-01] MEDS: Heparin 5000 UNITS/ML 1 mL VIAL SUBCUT SCH ×2 (06:01→12:26)
[2022-07-01 09:39] LABS: ABS Lymphocytes 0.6 10^3/ul (1.0-4.8); ABS Monocytes 0.4 10^3/ul (0-0.8); ABS Neutrophils 3.8 10^3/ul (1.5-7.7); Eosinophil % 0.6 %; Hematocrit 34 % (42-52); Hemoglobin 10.4 g/dL (14.0-18.0); Lymphocyte % 12.7 %; Mean Corpuscular HGB Conc 31 g/dL (31-36); Mean Corpuscular Hemoglobin 25 pg (27-31); Mean Corpuscular Volume 81 fL (80-94); Platelet Count 282 10^3/uL (150-450); Red Blood Count 4.18 10^6 /uL (4.18-5.48); Red Cell Distribution Width 20 % (10-15); White Blood Count 4.9 10^3/uL (3.5-10.8)
[2022-07-01 09:55] LABS: Calcium 8.1 mg/dL (8.6-10.3); Potassium 3.9 mmol/L (3.5-5.0)
[2022-07-01 09:56] LABS: eGFR CKD-EPI 125.9 (>60)
[2022-07-01] MEDS: Pantoprazole VIAL 40 MG VIAL IV SCH (10:50)
[2022-07-01 11:44] LABS: Rapid COVID-19 Molecular Undetected (Undetected)
[2022-07-01 14:28] VITALS: BP 136/63
== END 2022-07-01 14:12 | DRG 865 ==
LOC: ED 18:50 → EDHOLD 21:30 → SUATTDRO 21:30 → MEDTELE 06-26 20:34
PROVIDERS: ADMIT Internal Medicine; ATTEND Hospitalist